=== PATIENT | female | born 1960 | race Two or more races ===

== ENCOUNTER → 2023-03-17 | Outpatient (CLI) | payer OTHER ==
[~2023-03-17] MED LIST: ALBUT IH; ATACAND32 MG PO; CRESTOR10 MG PO; OMEPRAZOLE-BIC1 EAC1 PO; QUESTRAN PACKET4 GM PO; SYNTHROID50 MCG PO; [UNRECOGNIZED DRUG - OTHER] PO
== END | disposition home or self-care (01) ==
LOC: LAB 06:00 → ADM 12:00 → CIR.AMB 03-26 09:00 → EDSTATUS 03-26 12:00 → CIR.AMB 03-26 12:00
PROVIDERS: ATTEND Surgery
DX: Z01.810 Encounter for preprocedural cardiovascular examination (principal); D12.8 Benign neoplasm of rectum; D37.5 Neoplasm of uncertain behavior of rectum; D12.9 Benign neoplasm of anus and anal canal; K62.82 Dysplasia of anus

== ENCOUNTER 2023-06-11 05:00 | Day surgery (SDC) | payer OTHER ==
[2023-06-11] MEDS ORDERED: CEFTRIAXONE SODIUM 2,000 MG VIAL ONE (06:27)
[2023-06-11] MEDS ORDERED: METRONIDAZOLE/SODIUM CHLORIDE 500 MG/100 ML PIGGYBACK IV ONE (06:27)
[2023-06-11] MEDS ORDERED: DIBUCAINE 15 GM OINT..GM. TUBE ONE (07:02)
[2023-06-11] MEDS ORDERED: POVIDONE-IODINE 118 ML BOTT TOP ONE (07:02)
[2023-06-11] MEDS ORDERED: HEMOSTATIC MATRIX 1 KIT KIT TOP ONE (07:02)
[2023-06-11] MEDS ORDERED: BUPIVACAINE HCL/PF 0.5% 30ML ML ONE (07:02)
[2023-06-11] MEDS ORDERED: LIDOCAINE HCL/EPINEPHRINE 20 ML VIAL IJ ONE (07:02)
[2023-06-11] MEDS ORDERED: PERCOCET 5-3251 EACH PO (08:09)
[2023-06-11] MEDS ORDERED: RECTICARE30 GM TOP (08:10)
== END 2023-06-11 12:05 | disposition home or self-care (01) ==
LOC: CIR.AMB 05:00
PROVIDERS: ATTEND Surgery
DX: K62.0 Anal polyp (principal); K62.1 Rectal polyp; K62.82 Dysplasia of anus; Z20.822 Contact with and (suspected) exposure to COVID-19; I10 Essential (primary) hypertension; E03.9 Hypothyroidism, unspecified